=== PATIENT | male | born 1945 | race Caucasian/White ===

== ENCOUNTER → 2021-07-02 | Outpatient (CLI) | payer OTHER | LOC: MRI 06-25 09:26 | PROVIDERS: ATTEND Podiatrist Foot & Ankle Surgery | DX: M19.071 Primary osteoarthritis, right ankle and foot (principal); R60.0 Localized edema; G57.61 Lesion of plantar nerve, right lower limb; E08.40 Diabetes mellitus due to underlying condition with diabetic neuropathy, unspecified; Z95.0 Presence of cardiac pacemaker ==